=== PATIENT | female | born 1990 | race Caucasian/White ===

== ENCOUNTER → 2017-05-11 | Outpatient (CLI) | payer OTHER ==
[~2017-05-11] MED LIST: CIPRO PO; LEXAPRO PO; TYLENOL #3 PO; ZOFRAN ODT4 MG/UDTAB PO
--- NOTE | ~2017-05-11 | NM19 ---
[facility] A Service of [facility] & [facility] RADIOLOGY TEXT RESULTS PATIENT: KATIE VÁZQUEZ LOCATION: [facility] : [birth year] UNIT #: [id number] AGE: [address]: JIGAR SUNSHINE APRN SEX: F ORDER DR: [id number] [facility] [address] [facility] [place], [place] [address] [id number] O MR#: [id number] Acc #: [id number] NAME: KATIE VÁZQUEZ : 1990 SEX: F STUDY DATE/TIME: 05/11/2017 8:22 UNIT: [facility] ROOM: STUDY DESCRIPTION: NM Gastric Emptying Study Attending Physician: Jigar Sunshine Aprn Referring Physician: Jigar Sunshine Aprn Ordering Physician: Jigar Sunshine Aprn Primary Care Physician: Elsa Franklin M.D. MEDICAL IMAGING REPORT This report is preliminary unless electronic signature is present EXAM Gastric emptying scan, 05/11/2017. HISTORY Epigastric abdominal pain and abdominal bloating and early satiety and nausea, burning sensation in stomach. Symptoms beginning 2 years ago, worsening in the last 3 months. FINDINGS The patient received an intravenous injection of 548 mcCi of technetium 99m tagged sulfur colloid in eggs. Images of the upper abdomen were obtained for 4 hours. After 1 hour the stomach was 47% empty and after 2 hours the stomach was 88% empty and after 4 hours the stomach was 99% empty. Normal range is greater than 60% empty after 2 hours of imaging and greater than 90% empty after 4 hours of imaging. IMPRESSION Normal gastric emptying after 2 and 4 hours of imaging. Dictated by... Kaden Ramirez M.D. THIS IS AN ELECTRONICALLY VERIFIED REPORT Kaden Ramirez M.D. at 05/14/2017 2:10 PM FIDEL/radha TD: 05/11/2017 17:19 JOB #: [id number] MEDICAL IMAGING REPORT Page 1 of 1 COPY
== END | disposition home or self-care (01) ==
LOC: CNUC 05-09 07:30
DX: R10.13 Epigastric pain (principal); R68.81 Early satiety; R11.0 Nausea
CPT/HCPCS: 78264; A9541